=== PATIENT | male | born 1955 | race Caucasian/White ===

== ENCOUNTER 2016-07-05 13:37 | Observation (INO) | payer SELFPAY ==
[2016-07-05 16:22] VITALS: TEMP 98.7
[2016-07-05] MEDS ORDERED: Aspirin 325 mg EC Tablets PO STA (16:36)
[2016-07-05 16:49] LABS: BASO % 0.6 % (0.0-2.0); EOS % 0.2 % (0.0-4.0); HEMATOCRIT 41.3 % (35.0-51.0); LYMPH # 1.7 K/uL (1.0-4.3); MEAN CELL VOLUME 95.7 fL (80.0-94.0); MEAN CORPUSCULAR HEMOGLOBIN 30.9 pg (27.0-31.0); MEAN CORPUSCULAR HGB CONC 32.3 g/dL (33.0-37.0); MONO # 0.8 K/uL (0.0-0.8); MONO % 14.7 % (0.0-10.0); WHITE BLOOD COUNT 5.6 K/uL (4.8-10.8)
[2016-07-05 16:55] LABS: CHLORIDE 93 mmol/L (98-107); POTASSIUM 4.4 mmol/L (3.6-5.2); SODIUM 134 mmol/L (132-148)
[2016-07-05 16:57] LABS: BILIRUBIN,TOTAL 0.9 mg/dL (0.2-1.3); GFR AFRICAN-AMERICAN > 60
[2016-07-05 16:58] LABS: ALB/GLOB RATIO 0.8 (1.0-2.1); ALKALINE PHOSPHATASE 48 U/L (38-126); ALT/SGPT 26 U/L (21-72); AST/SGOT 49 U/L (17-59); BLOOD UREA NITROGEN 19 mg/dL (9-20); CALCIUM 8.4 mg/dl (8.6-10.4); CARBON DIOXIDE 30 mmol/L (22-30); GLUCOSE,RANDOM 106 mg/dL (75-110); TOTAL PROTEIN 7.9 g/dL (6.3-8.3)
--- NOTE | 2016-07-05 17:16 | C.PDOC ---
History Of Present Illness 60 yr old male presents to the ER for general malaise, chest pain, SOB for the past 10 days. Patient states he recently quit smoking after he was at work and he realized he was feeling SOB while climbing stairs and was unable to climb up the scaffolding. Patient states he feels the chest pain mainly when he coughs. Patient denies fever, chills, nausea, vomiting, abdominal pain, headache, weakness or numbness. Time Seen by Provider: 07/05/16 16:35 Chief Complaint (Nursing): Respiratory Distress History Per: Patient History/Exam Limitations: no limitations Onset/Duration Of Symptoms: Days Current Symptoms Are (Timing): Still Present Exacerbating Factor(s): Exertion Past Medical History Reviewed: Historical Data, Nursing Documentation, Vital Signs Vital Signs: Last Vital Signs Temp 98.7 F 07/05/16 16:14 Pulse 87 07/05/16 16:14 Resp 30 H 07/05/16 16:14 BP 163/82 H 07/05/16 16:14 Pulse Ox 87 L 07/05/16 17:18 Family History: States: No Known Family Hx - Social History Hx Tobacco Use: Yes (1.5 packs a day ) Hx Alcohol Use: Yes Hx Substance Use: No - Immunization History Hx Tetanus Toxoid Vaccination: No Hx Influenza Vaccination: No Hx Pneumococcal Vaccination: No Review Of Systems Except As Marked, All Systems Reviewed And Found Negative. Constitutional: Positive for: Malaise. Negative for: Fever, Chills Cardiovascular: Positive for: Chest Pain Respiratory: Positive for: Cough, SOB with Excertion Gastrointestinal: Negative for: Nausea, Vomiting, Abdominal Pain Neurological: Negative for: Weakness, Numbness, Headache Physical Exam - Physical Exam Appears: Well, Non-toxic, No Acute Distress Skin: Normal Color, Warm, Dry Head: Atraumatic, Normacephalic Oral Mucosa: Moist Chest: Symmetrical, No Tenderness Cardiovascular: Rhythm Regular, No Murmur Respiratory: Normal Breath Sounds, No Rales, No Rhonchi, No Stridor, No Wheezing Gastrointestinal/Abdominal: Normal Exam, Soft, No Tenderness, No Guarding, No Rebound Extremity: Normal ROM, No Swelling Neurological/Psych: Oriented x3, Normal Speech, Normal Motor ED Course And Treatment - Laboratory Results Result Diagrams: 07/05/16 16:44 07/05/16 16:44 O2 Sat by Pulse Oximetry: 87 Medical Decision Making Medical Decision Making: PLAN: * CXR * EKG * Troponin * CBC * Aspirin PO Disposition Discussed With : Luis Mina Doctor Will See Patient In The: Hospital Counseled Patient/Family Regarding: Studies Performed, Diagnosis, Need For Followup - Disposition Disposition: HOSPITALIZED Disposition Time: 18:26 Condition: GUARDED - POA Present On Arrival: None - Clinical Impression Clinical Impression: SOB (shortness of breath), Chest pain in adult - Scribe Statement The provider has reviewed the documentation as recorded by the Oralia Rogers Provider Attestation: All medical record entries made by the Oralia were at my direction and personally dictated by me. I have reviewed the chart and agree that the record accurately reflects my personal performance of the history, physical exam, medical decision making, and the department course for this patient. I have also personally directed, reviewed, and agree with the discharge instructions and disposition. Decision To Admit - Pt Status Changed To: Hospital Disposition Of: Observation - . Bed Request Type: Telemetry Patient Diagnosis: SOB (shortness of breath), Chest pain in adult
[2016-07-05] MEDS ORDERED: Aspirin 325 mg EC Tablets PO ONE (17:50)
[2016-07-05 18:56] LABS: CHOLESTEROL 71 mg/dL (0-199)
[2016-07-05 19:06] VITALS: RESP 18; O2SAT 95
[2016-07-05 20:35] VITALS: BP 147/85; PULSE 67
--- NOTE | 2016-07-06 09:18 | RAD ---
HISTORY: chest pain COMPARISON: No prior. FINDINGS: LUNGS: Prominent lung markings appears more conspicuous compared to the previous exam. Mild hyperinflation of the lungs is again noted. PLEURA: No significant pleural effusion identified, no pneumothorax apparent. CARDIOVASCULAR: Normal. OSSEOUS STRUCTURES: No significant abnormalities. VISUALIZED UPPER ABDOMEN: Normal. OTHER FINDINGS: None. IMPRESSION: Prominent lung markings. Otherwise no significant interval change.
--- NOTE | 2016-07-07 19:06 | CARD ---
APPROVED REPORT EKG Measurement Heart [id number] <Conclusion> Normal sinus rhythm Right superior axis deviation Nonspecific ST abnormality Abnormal ECG
== END 2016-07-05 20:20 | disposition left against medical advice (07) ==
LOC: C.ER 13:37 → C.9E 18:27 → C.6T 21:55 → C.9E 21:55
PROVIDERS: ADMIT Internal Medicine; ATTEND Internal Medicine
DX: R07.9 Chest pain, unspecified (principal); R06.02 Shortness of breath
CPT/HCPCS: 71010; 80053; 80061; 83880; 84484; 85025; 85378; 87804; 99285; G0378